=== PATIENT | female | born 1990 | race African-American/Black ===

== ENCOUNTER 2020-02-05 05:18 | Inpatient (IN) | payer OTHER ==
[~2020-02-05] VITALS: Ht 165.1 cm; Wt 69.9 kg
[2020-02-05] MEDS ORDERED: MAG HYDROX/AL HYDROX/SIMETH 30 ML UDC ONE (05:30)
[2020-02-05] MEDS ORDERED: MAG HYDROX/AL HYDROX/SIMETH 30 ML UDC PO ONE (05:30)
--- NOTE | 2020-02-05 05:30 | NUR ---
PT AAOX4. AMBULATORY WITH STEADY GAIT. BIBSELF C/O EPIGASTRIC PAIN FOR THE PAST NIGHT W VOMITING. VSS. PLACED IN BED 4, ON MONITOR AND PULSE OX. AWAITING MD FOR EVAL.
[2020-02-05] MEDS ORDERED: ONDANSETRON HCL/PF 4 MG/2 ML VIAL ONE ×2 (05:37→06:22)
--- NOTE | 2020-02-05 05:39 | NUR ---
PT VOMITING, MD ORDERED IV ZOFRAN.
--- NOTE | 2020-02-05 05:39 | NUR ---
RESIDENT ASSOCIATE AT BEDSIDE FOR LABS. AWAITING URINE SAMPLE.
[2020-02-05 05:49] LABS: HEMOGLOBIN 14.3 g/dL (11.5-14.8)
[2020-02-05 05:53] LABS: BASOPHILS # (AUTO) 0.1 /CMM (0.0-0.2); BASOPHILS % (AUTO) 0.4 % (0.0-2.0); HEMATOCRIT 44 % (33-45); LYMPHOCYTES # (AUTO) 1.1 /CMM (0.8-4.8); MEAN CORPUSCULAR HGB CONC 33 g/dl (31.0-36.0); MEAN CORPUSCULAR VOLUME 87 fL (82-100); MONOCYTES # (AUTO) 0.7 /CMM (0.1-1.30); MONOCYTES % (AUTO) 2.4 % (2.0-12.0); NEUTROPHILS # (AUTO) 25.3 /CMM (1.8-8.9); NEUTROPHILS % (AUTO) 93.2 % (43.0-81.0); PLATELET COUNT (AUTO) 176 /CMM (150-450); RED BLOOD CELL COUNT(AUTO) 5.01 MIL/uL (4.0-5.2); WHITE BLOOD COUNT (AUTO) 27.1 K/uL (4.3-11.0)
[2020-02-05 05:57] LABS: CALCIUM, SERUM 9.6 mg/dL (8.5-10.1); CREATININE 1.3 mg/dL (0.6-1.3); POTASSIUM 3.2 mmol/L (3.5-5.1)
[2020-02-05] MEDS ORDERED: ONDANSETRON HCL/PF - ER 4 MG/2 ML VIAL IV ONE (06:00)
[2020-02-05 06:06] LABS: ALBUMIN 4.8 g/dL (3.4-5.0); BILIRUBIN,DIRECT 0.1 mg/dL (0.0-0.2); BILIRUBIN,TOTAL 0.6 mg/dL (0.2-1.0); TOTAL PROTEIN, SERUM 8.4 g/dL (6.4-8.2)
[2020-02-05] MEDS ORDERED: KETOROLAC TROMETHAMINE 15 MG/ML VIAL ONE (06:17)
[2020-02-05] MEDS ORDERED: HYDROMORPHONE 1 MG/1 ML DISP.SYRIN ONE (06:17)
[2020-02-05] MEDS ORDERED: PIPERACILLIN /TAZOBACTAM 3.375 G VIAL IV ONE (06:17)
[2020-02-05] MEDS ORDERED: KETOROLAC TROMETHAMINE INJ 30 MG/ML VIAL IV ONE (06:30)
[2020-02-05] MEDS ORDERED: PIPERACILLIN /TAZOBACTAM 3.375 G in IV D5W 50 ML IV ONE (06:30)
[2020-02-05] MEDS ORDERED: ONDANSETRON HCL/PF 4 MG/2 ML VIAL IVP ONE (06:30)
[2020-02-05] MEDS ORDERED: IV NS 0.9% 1,000 ML BAG IV ONE (06:30)
[2020-02-05] MEDS ORDERED: HYDROMORPHONE INJ 2 MG/ML DISP.SYRIN IV ONE (06:30)
--- NOTE | 2020-02-05 06:31 | NUR ---
URINE COLLECTED AND SENT TO LAB
--- NOTE | 2020-02-05 06:48 | NUR ---
US AT BEDSIDE
--- NOTE | 2020-02-05 07:12 | NUR ---
REPORT GIVEN TO DIEUDONNE SIMMONS FOR JONES
--- NOTE | 2020-02-05 07:30 | NUR ---
wheeled patient to ct
--- NOTE | 2020-02-05 07:30 | NUR ---
PT IS WHEELED TO CT SCAN [place]IA [facility] [place]
[2020-02-05 07:32] LABS: LYMPHOCYTES % (MANUAL) 4 % (16-48); MONOCYTES % (MANUAL) 2 % (0-11.0); NEUTROPHILS % (MANUAL) 94 (42-76)
[2020-02-05] MEDS ORDERED: IV NS 0.9% 250 ML IV ONE (07:34)
[2020-02-05] MEDS ORDERED: IOHEXOL-300 100 ML VIAL IV ONE (07:34)
[2020-02-05] MEDS ORDERED: CT SWABBABLE VALVE TRANS SET 1 EA INFUS.SET MC ONE (07:34)
[2020-02-05] MEDS: IV PREMIX D5 NS + KCL 1,000 ML IV ONE (07:50)
[2020-02-05] MEDS ORDERED: AZITHROMYCIN 500 MG in IV D5W 250 ML IV ONE (08:30)
--- NOTE | 2020-02-05 08:33 | NUR ---
NAVEED craig from [employer] gave auth to admit patient here.
--- NOTE | 2020-02-05 08:35 | NUR ---
[facility] paged
--- NOTE | 2020-02-05 09:20 | NUR ---
CALLED [facility]SE [facility] FOR TELE BED
[2020-02-05 09:32] LABS: B-TYPE NATRIURETIC PEPTIDE 942 PG/ML (0-125)
--- NOTE | 2020-02-05 10:00 | NUR ---
CALLED FOR TELE BED.
--- NOTE | 2020-02-05 10:25 | NUR ---
GOT BED 103.
--- NOTE | 2020-02-05 10:30 | NUR ---
REPORT GIVEN TO DIEUDONNE CALLAHAN FOR JONES.
[2020-02-05 11:23] LABS: D-DIMER 0.51 mg/L(FEU (0.17-0.50)
--- NOTE | 2020-02-05 11:35 | NUR ---
wheeled patient via gurney accompanied by RN and emt in no distress. RN at bedside to assume care.
--- NOTE | 2020-02-05 11:45 | NUR ---
MS RN NOTES PATIENT DECIDED TO KEEP VALUABLES AT THE BED SIDE. BELONGING FORM SIGNED.
[2020-02-05 12:00] VITALS: BP 127/89
[2020-02-05] MEDS ORDERED: ACETAMINOPHEN 325 MG TABLET PO PRN (12:30)
[2020-02-05] MEDS ORDERED: MAGNESIUM HYDROXIDE 30 ML UDC PO PRN (12:30)
[2020-02-05] MEDS ORDERED: MAG HYDROX/AL HYDROX/SIMETH 30 ML UDC PO PRN (12:30)
[2020-02-05] MEDS ORDERED: Z GUARD REMEDY 2 OZ OINT TP PRN (12:30)
[2020-02-05] MEDS ORDERED: POTASSIUM CHLORIDE 20 MEQ TAB.PRT.SR PO ONE (12:30)
[2020-02-05] MEDS: HYDROCODONE/APAP 5/325MG 1 EACH TABLET PO PRN (12:43)
[2020-02-05] MEDS: IV NS 0.9% 1,000 ML IV PRN (12:45)
[2020-02-05 13:03] LABS: CREATINE KINASE, TOTAL 245 U/L (26-192)
[2020-02-05 13:07] LABS: FERRITIN 75 ng/mL (8-388)
[2020-02-05] MEDS: PIPERACILLIN /TAZOBACTAM 3.375 G in IV D5W 100 ML IV SCH ×2 (13:40→21:59)
--- NOTE | 2020-02-05 13:41 | NUR ---
ROCKY SLD INCLUSION TEACHER NOTES ZOSYN IS NOT AVAILABLE ON THE [facility]. [facility].
[2020-02-05 16:00] VITALS: BP 99/59
--- NOTE | 2020-02-05 18:50 | NUR ---
ROCKY RN CLOSING NOTES PT IS RESTING NOW. ALERT AND ORIENTED X4. PAIN DECREASE FROM 7 TO 4 . PT IS ON THE ROOM AIR. BED IS IN THE LOWEST POSITION . CALL LIGHT WITHIN REACH. SAFETY MEASURE ARE IMPLEMENTED. WILL ENDORSE TO NIGHT SHIFTS TO JONES
--- NOTE | 2020-02-05 19:20 | NUR ---
TRADING ANALYST OPENING NOTES RECIEVED PT ON BED AWAKE WATCHING TV A/O X4 OMANI SPEAKING NO SIGN AND SYMPTOMS OF RESPIRATORY DISTRESS, SPO2 98% VIA RA, ON TELE MONITOR WITH CURRENT READING SINUS RHYTHM 60'S-70'S, WITH LAC # 20 WITH ONGOING IVF OF NS @ 75ML/HR INFUSING WELL, ON DROPLET ISOLATION PRECAUTION R/O COVID, SAFETY MEASURE MAINTAINED BED ON LOWEST POSITION AND LOCKED SIDE RAILS UP X2 CALL LIGHT WITHIN REACH WILL CONT TO MONITOR
[2020-02-05 20:00] VITALS: BP 126/87
[2020-02-06] VITALS (7 sets, daily range): BP systolic 100–140; BP diastolic 55–92
[2020-02-06] MEDS: HYDROCODONE/APAP 5/325MG 1 EACH TABLET PO PRN ×2 (03:10→13:37)
[2020-02-06] MEDS: ONDANSETRON HCL/PF 4 MG/2 ML VIAL IVP PRN (03:11)
[2020-02-06] MEDS: PIPERACILLIN /TAZOBACTAM 3.375 G in IV D5W 100 ML IV SCH (04:30)
[2020-02-06] MEDS: IV NS 0.9% 1,000 ML IV PRN ×2 (06:01→21:44)
--- NOTE | 2020-02-06 06:49 | NUR ---
RN CLOSING NOTES PT SLEEPING ON BED NO SIGN AND SYMPTOMS OF RESPIRATORY DISTRESS SPO2 >92% NO SOB NOTED,STILL ON TELE MONITOR CURRENT READING SINUS RHYTHM 70'S. NO SIGNIFICANT CHANGES ON CONDITION NOTED, DROPLET ISOLATION MAINTAINED FOR R/O COVID 19, ALL NEEDS ATTENDED, SAFETY MEASURE MAINTAINED BED ON LOWEST POSITION AND LOCKED SIDE RAILS UP X2, CALL LIGHT WITHIN REACH WILL ENDORSE TO AM SHIFT NURSE
[2020-02-06 07:20] LABS: BASOPHILS % (AUTO) 0.2 % (0.0-2.0); EOSINOPHILS % (AUTO) 0.3 % (0.0-6.0); HEMATOCRIT 36 % (33-45); HEMOGLOBIN 11.7 g/dL (11.5-14.8); LYMPHOCYTES # (AUTO) 3.4 /CMM (0.8-4.8); LYMPHOCYTES % (AUTO) 24.4 % (20.0-44.0); MEAN CORPUSCULAR HGB CONC 33 g/dl (31.0-36.0); MEAN CORPUSCULAR VOLUME 87 fL (82-100); MONOCYTES # (AUTO) 0.5 /CMM (0.1-1.30); MONOCYTES % (AUTO) 3.3 % (2.0-12.0); NEUTROPHILS % (AUTO) 71.8 % (43.0-81.0); PLATELET COUNT (AUTO) 114 /CMM (150-450); RED BLOOD CELL COUNT(AUTO) 4.11 MIL/uL (4.0-5.2); WHITE BLOOD COUNT (AUTO) 13.9 K/uL (4.3-11.0)
--- NOTE | 2020-02-06 07:30 | NUR ---
RN OPENING NOTES RECEIVED REPORT FROM VENDING MACHINE OPERATOR NURSE, PATIENT RESTING CALMLY AT BED, ON ROOM AIR, SATURATION IS 100%,A&O X 4, PATIENT IS ON TELEMONITOR, SINUS RHYTHM 60S, SKIN IS INTACT, IV IS ON LEFT AC G20, RUNNING NS @75 CC/HR, BED IN LOWEST POSITION, CALL LIGHT WITHIN A REACH, SAFETY MEASURES ARE IMPLEMENTED, CONTINUE TO MONITOR
[2020-02-06 07:58] LABS: CALCIUM, SERUM 7.9 mg/dL (8.5-10.1); CREATININE 1.2 mg/dL (0.6-1.3); POTASSIUM 3.4 mmol/L (3.5-5.1)
[2020-02-06] MEDS ORDERED: DOXYCYCLINE 100 MG in IV NS 0.9% 100 ML IV SCH (09:00)
[2020-02-06] MEDS: CEFTRIAXONE 1 G in IV D5W 50 ML IV SCH (09:14)
[2020-02-06] MEDS ORDERED: DOXYCYCLINE HYCLATE (100 MG) 100 MG TABLET PO SCH (09:55)
[2020-02-06] MEDS: DOXYCYCLINE HYCLATE (100 MG) 100 MG TABLET PO SCH ×2 (10:48→20:51)
[2020-02-06] MEDS ORDERED: POTASSIUM CHLORIDE 20 MEQ TAB.PRT.SR PO ONE (11:00)
--- NOTE | 2020-02-06 11:38 | NUR ---
PROGRESS NOTE PERFORMED ORAL SWAB FOR COVID LAB TEST, TEST DELIVERED TO THE LAB
[2020-02-06] MEDS ORDERED: MORPHINE SULFATE INJ 2 MG/ML DISP.SYRIN IV PRN (14:00)
--- NOTE | 2020-02-06 15:00 | NUR ---
PROGRESS NOTE PT THRASHING IN THE ROOM, COMPLEIND OF SEVERE PAIN INTO ABDOMINAL AREA, CONTACT MD CAVANAUGH OBTAINED ORDERS FOR PRN PAIN MANAGEMENT
[2020-02-06] MEDS ORDERED: HYDROMORPHONE 1 MG/1 ML DISP.SYRIN IV ONE (15:30)
[2020-02-06] MEDS ORDERED: IV NS 0.9% 1,000 ML IV PRN (16:30)
[2020-02-06] MEDS ORDERED: IV NS 0.9% 500 ML IV ONE (16:30)
--- NOTE | 2020-02-06 18:42 | NUR ---
RN CLOSING NOTES PATIENT SLEEPING IN BED,, ON ROOM AIR, SATURATION IS 100% NO S/SX OF RESPIRATORY DISTRESS, ,A&O X 4, SKIN IS INTACT, IV IS ON LEFT AC G20, NO REDDENS NOTED, BED IN LOWEST POSITION, CALL LIGHT WITHIN A REACH, SAFETY MEASURES ARE IMPLEMENTED, ALL DUE MED ARE GIVEN, WILL ENDORSE TO WELDER MANUFACTURE NURSE
[2020-02-06] MEDS: HYDROMORPHONE 1 MG/1 ML DISP.SYRIN IV PRN (21:09)
[2020-02-07] MEDS: HYDROMORPHONE 1 MG/1 ML DISP.SYRIN IV PRN ×3 (01:52→21:02)
--- NOTE | 2020-02-07 04:06 | NUR ---
RN notes Patient in bed with no respiratory distress, breathing even and unlabored. On room air tolerating well. Patient is complaining of abdominal pain. Dilaudid 1mg administered with very little relief. Waiting for serology result for covid 19. No episode of vomiting and nausea. Kept clean and dry. Will endorse to next shift for continuity of care.
--- NOTE | 2020-02-07 07:00 | NUR ---
RN NOTES RECEIVED PT ON BED, A/OX4, ON RA, NO SOB NOTED, NS AT 75CC/HR RUNNING VIA R FA IV SITE G 22, SITE CLEAN, DRY AND INTACT, SR UP x3, CALL LIGHT WITHIN EASY REACH BED LOCKED AND IN LOWEST POSITION, CONTINUE TO MONITOR .
[2020-02-07 07:18] LABS: B-TYPE NATRIURETIC PEPTIDE 884 PG/ML (0-125)
[2020-02-07 07:22] LABS: FERRITIN 104 ng/mL (8-388)
[2020-02-07] MEDS: IV NS 0.9% 1,000 ML IV PRN (07:40)
[2020-02-07 08:00] VITALS: BP 101/65
[2020-02-07] MEDS: DOXYCYCLINE HYCLATE (100 MG) 100 MG TABLET PO SCH ×2 (08:34→20:47)
[2020-02-07 08:37] LABS: CALCIUM, SERUM 8.7 mg/dL (8.5-10.1); CREATININE 1.2 mg/dL (0.6-1.3); POTASSIUM 3.7 mmol/L (3.5-5.1)
[2020-02-07 08:43] LABS: BASOPHILS # (AUTO) 0.1 /CMM (0.0-0.2); BASOPHILS % (AUTO) 0.2 % (0.0-2.0); EOSINOPHILS % (AUTO) 0.1 % (0.0-6.0); HEMATOCRIT 39 % (33-45); HEMOGLOBIN 12.5 g/dL (11.5-14.8); LYMPHOCYTES # (AUTO) 2.8 /CMM (0.8-4.8); LYMPHOCYTES % (AUTO) 12.5 % (20.0-44.0); MEAN CORPUSCULAR HGB CONC 33 g/dl (31.0-36.0); MEAN CORPUSCULAR VOLUME 87 fL (82-100); MONOCYTES # (AUTO) 1.1 /CMM (0.1-1.30); MONOCYTES % (AUTO) 4.9 % (2.0-12.0); NEUTROPHILS # (AUTO) 18.1 /CMM (1.8-8.9); NEUTROPHILS % (AUTO) 82.3 % (43.0-81.0); PLATELET COUNT (AUTO) 161 /CMM (150-450); RED BLOOD CELL COUNT(AUTO) 4.43 MIL/uL (4.0-5.2)
[2020-02-07] MEDS: ONDANSETRON HCL/PF 4 MG/2 ML VIAL IVP PRN ×2 (09:23→15:47)
[2020-02-07] MEDS ORDERED: HYDROMORPHONE 1 MG/1 ML DISP.SYRIN IV ONE (10:00)
[2020-02-07] MEDS: CEFTRIAXONE 1 G in IV D5W 50 ML IV SCH (10:08)
--- NOTE | 2020-02-07 11:00 | NUR ---
RN NOTES DR CAVANAUGH NOTIFED REGARDING LA =2.2,
[2020-02-07 11:03] LABS: BILIRUBIN,DIRECT 0.2 mg/dL (0.0-0.2); BILIRUBIN,TOTAL 0.6 mg/dL (0.2-1.0)
--- NOTE | 2020-02-07 15:45 | NUR ---
RN NOTES PT REQUESTING C/O OF ABDOMINAL PAIN , NARCO PO GIVEN PER MD ORDER , CONTINUE TO MONITOR .
[2020-02-07] MEDS: HYDROCODONE/APAP 5/325MG 1 EACH TABLET PO PRN (15:47)
[2020-02-07 16:00] VITALS: BP 130/68
[2020-02-07 16:08] VITALS: BP 150/100
--- NOTE | 2020-02-07 16:49 | NUR ---
RN notes Administered 0.5mg of dilaudid at about 0445 for pain. Patient was complaining of severe epigastric abdominal pain. Had administered x 3for the 12 hour shift. Slightly effective. Waste for the third dose has not been recorded. Patient was screaming in pain and had to be administered quickly. The remainder dose of 0.5mg was mistakenly thrown away without a witness and had not been recorded as waste.
--- NOTE | 2020-02-07 17:10 | NUR ---
RN NOTES PT TRANSFERRED TO ROOM 209 NON COVID STATUS, PER DR CAVANAUGH ORDER, PT STABLE, REPORT GIVEN TO VICKIE BRO FOR CONTINUITY OF CARE.
--- NOTE | 2020-02-07 17:30 | NUR ---
MS RN NOTES RECEIVED PATIENT FROM ROCKY. BEDSIDE REPORT RECEIVED FROM EMELYN BRO. PATIENT SLEEPING. NO SOB OR ACUTE DISTRESS NOTED. PATIENT ORIENTED TO ROOM. CALL LIGHT WITHIN REACH. WILL CONTINUE TO MONITOR.
--- NOTE | 2020-02-07 18:56 | NUR ---
MS RN NOTES PATIENT IN BED RESTING NO SOB OR ACUTE DISTRESS NOTED. ALL DUE MEDICATIONS ADMINISTERED. ALL NEEDS MET. NO ACUTE CHANGES NOTED DURING SHIFT. WILL ENDORSE CARE TO PM SHIFT.
--- NOTE | 2020-02-07 19:40 | NUR ---
MS RN OPENING NOTES RECEIVED PATIENT FROM MORNING SHIFT, ALERT AND ORIENTED X 3. VERBALLY RESPONSIVE AND ABLE TO FOLLOW DIRECTIONS. BREATHING REGULAR AND UNLABORED ON ROOM AIR. RIGHT FOREARM G22 IV LINE INTACT AND PATENT, INFUSING WELL WITH NO BLEEDING OR S/S OF INFILTRATION NOTED. DENIES SUICIDAL IDEATION OR PAIN/DISCOMFORT AT THIS TIME. BED LOW AND LOCKED ON SEMI FOWLERS POSITION. CALL LIGHT IN REACH. WILL CONTINUE TO MONITOR.
[2020-02-07 20:00] VITALS: BP 112/75
--- NOTE | 2020-02-07 21:10 | NUR ---
MS RN NOTES COMPLAINED OF 8/10 ABDOMINAL PAIN, DILAUDID 1MG GIVEN VIA IV PUSH. NON-PHARMACOLOGICAL INTERVENTIONS PROVIDED. VITAL SIGNS WNL. WILL CONTINUE TO MONITOR.
[2020-02-08] MEDS: HYDROMORPHONE 1 MG/1 ML DISP.SYRIN IV PRN ×4 (02:43→18:57)
[2020-02-08] MEDS: IV NS 0.9% 1,000 ML IV PRN (05:46)
[2020-02-08 06:30] LABS: BASOPHILS % (AUTO) 0.3 % (0.0-2.0); EOSINOPHILS % (AUTO) 0.6 % (0.0-6.0); HEMATOCRIT 35 % (33-45); HEMOGLOBIN 11.3 g/dL (11.5-14.8); LYMPHOCYTES # (AUTO) 1.6 /CMM (0.8-4.8); LYMPHOCYTES % (AUTO) 18.3 % (20.0-44.0); MEAN CORPUSCULAR HGB CONC 33 g/dl (31.0-36.0); MEAN CORPUSCULAR VOLUME 87 fL (82-100); MONOCYTES # (AUTO) 0.5 /CMM (0.1-1.30); MONOCYTES % (AUTO) 5.3 % (2.0-12.0); NEUTROPHILS # (AUTO) 6.6 /CMM (1.8-8.9); NEUTROPHILS % (AUTO) 75.5 % (43.0-81.0); PLATELET COUNT (AUTO) 115 /CMM (150-450); RED BLOOD CELL COUNT(AUTO) 3.97 MIL/uL (4.0-5.2); WHITE BLOOD COUNT (AUTO) 8.8 K/uL (4.3-11.0)
--- NOTE | 2020-02-08 06:50 | NUR ---
MS RN CLOSING NOTES PATIENT IN BED, ALERT AND ORIENTED X 3. AFEBRILE WITH NO S/S OF DISTRESS OBSERVED. RIGHT FOREARM G22 IV LINE PATENT AND INFUSING WELL. DENIES ANY PAIN/DISCOMFORT AT THIS TIME. BED LOW AND LOCKED ON SEMI FOWLERS POSITION. CALL LIGHT IN REACH. WILL ENDORSE TO MORNING SHIFT FOR JONES.
[2020-02-08 07:00] LABS: CALCIUM, SERUM 8.4 mg/dL (8.5-10.1); CREATININE 1.1 mg/dL (0.6-1.3); POTASSIUM 3.5 mmol/L (3.5-5.1)
--- NOTE | 2020-02-08 08:00 | NUR ---
MS RN NOTES PATIENT IN BED RESTING NO SOB OR ACUTE DISTRESS NOTED. PATIENT ALERT, ORIENTED X 3. BED IN LOW LOCKED POSITION. SAFETY MEASURES IN PLACE. CALL LIGHT WITHIN REACH. WILL CONTINUE TO MONITOR.
[2020-02-08] MEDS: ONDANSETRON HCL/PF 4 MG/2 ML VIAL IVP PRN (08:28)
[2020-02-08] MEDS: DOXYCYCLINE HYCLATE (100 MG) 100 MG TABLET PO SCH ×2 (08:29→20:26)
[2020-02-08] MEDS: CEFTRIAXONE 1 G in IV D5W 50 ML IV SCH (09:37)
[2020-02-08 15:28] VITALS: BP 141/71
[2020-02-08 18:42] LABS: APPEARANCE,URINE CLEAR (CLEAR); BILIRUBIN,URINE SMALL (NEGATIVE); BLOOD, URINE NEGATIVE Ery/uL (NEGATIVE); COLOR,URINE YELLOW (YELLOW); KETONES,URINE >=80 (NEGATIVE); LEUKOCYTE ESTERASE ,URINE NEGATIVE (NEGATIVE); NITRITE, URINE NEGATIVE (NEGATIVE); PROTEIN,URINE NEGATIVE (NEGATIVE); UGLUCOSE NEGATIVE (NEGATIVE); UROBILINOGEN,URINE 0.2 EU/dL (0.2)
--- NOTE | 2020-02-08 18:47 | NUR ---
MS RN NOTES PATIENT IN BED RESTING NO SOB OR ACUTE DISTRESS NOTED. NO ACUTE CHANGES NOTED. ALL DUE MEDICATIONS ADMINISTERED. ALL NEEDS MET. WILL ENDORSE CARE TO PM SHIFT.
--- NOTE | 2020-02-08 19:20 | NUR ---
RN OPENING NOTES Received patient asleep on bed. On RA, no SOB/respiratory distress noted at this time. Patient denies any pain at this time. Kept on bed clean, dry and comfortable. On fall and aspiration precautions. Will continue to monitor accordingly.
[2020-02-08 20:00] VITALS: BP 120/60
[2020-02-08 23:10] VITALS: BP 110/63
[2020-02-09] MEDS: HYDROMORPHONE 1 MG/1 ML DISP.SYRIN IV PRN ×4 (00:06→23:43)
[2020-02-09] MEDS: IV NS 0.9% 1,000 ML IV PRN ×2 (01:39→19:57)
--- NOTE | 2020-02-09 06:50 | NUR ---
RN CLOSING NOTES Patient asleep, easily awaken. No new complaints made. All nursing needs attended. Due meds given as ordered. Kept on bed clean, dry and comfortable. On fall and aspiration precautions. Endorsed.
--- NOTE | 2020-02-09 08:00 | NUR ---
MS RN OPENING NOTES Received Patient awake, walking and restless in room. A/O x 3. VS stable with no acute distress. Breathing even and unlabored on room air with no respiratory distress. Patient stated 9/10 abdominal pain. Will intervene as ordered. 22g PIV on RFA clean, intact, patent and flushing well with NS infusing at 75ml/hr. Safety precautions in place. Bed locked and set to lowest position with side rails x 2 up. All needs rendered at this time. Call light within reach. Will continue to monitor.
[2020-02-09] MEDS: DOXYCYCLINE HYCLATE (100 MG) 100 MG TABLET PO SCH ×2 (08:02→20:30)
[2020-02-09] MEDS: ONDANSETRON HCL/PF 4 MG/2 ML VIAL IVP PRN (08:05)
[2020-02-09] MEDS: CEFTRIAXONE 1 G in IV D5W 50 ML IV SCH (09:01)
--- NOTE | 2020-02-09 10:00 | NUR ---
MS RN NOTES Per Zahra GALLO, order Protonix 40mg IVP QD with one time dose now. And change Dilaudid 1mg IVP PRN q4h to q6h frequency. Order read back, noted and carried out. Patient in stable condition. Will continue to monitor.
[2020-02-09] MEDS: PANTOPRAZOLE 40 MG VIAL IV SCH (10:41)
--- NOTE | 2020-02-09 19:20 | NUR ---
MS RN CLOSING NOTES Patient resting at this time. A/O x 3. VS stable with no acute distress. Breathing even and unlabored on room air with no respiratory distress. Patient stated tolerable abdominal pain 4/10. 22g PIV on RFA clean, intact, patent and flushing well with NS infusing at 75ml/hr. Safety precautions in place. Bed locked and set to lowest position with side rails x 2 up. All needs rendered at this time. Call light within reach. Will endorse plan of care to oncoming shift.
--- NOTE | 2020-02-09 19:21 | NUR ---
RN OPENING NOTES Received patient awake, sitting on bed, on the phone. Denies any discomfort at this time. With IVF infusing well, NS @ 75ml/hr as ordered. Discussed to patient the plan of care, verbalized understanding. Will continue to monitor accordingly.
[2020-02-09 20:00] VITALS: BP 115/77
--- NOTE | 2020-02-09 20:51 | NUR ---
RN NOTES Patient able to take shower independently. IV site wrapped, instructed patient to avoid water on the site, verbalized understanding.
[2020-02-09 21:04] VITALS: BP 115/77
--- NOTE | 2020-02-09 23:54 | NUR ---
RN NOTES Patient complaint of severe abdominal pain. Administered meds as ordered. Per RN report, pt may have EGD in AM. Confirmed with patient in agreement to do the procedure tomorrow. Instructed to kept on NPO, pt verbalized understanding. Notified tar and ammonia pump operator MD Dr. Bowden. Will continue to monitor accordingly.
[2020-02-10] MEDS: HYDROCODONE/APAP 5/325MG 1 EACH TABLET PO PRN ×2 (03:49→13:11)
[2020-02-10] MEDS: HYDROMORPHONE 1 MG/1 ML DISP.SYRIN IV PRN ×4 (06:14→22:58)
--- NOTE | 2020-02-10 06:28 | NUR ---
RN CLOSING NOTES Patient asleep, easily awaken. On RA, no respiratory distress noted. With complaints of abdominal pain, managed with PRN pain meds as ordered. Pt in agreement of EGD discussed with HCP yesterday. Kept on NPO for possible EGD today. All nursing needs attended. Call light within easy reach. Endorsed.
--- NOTE | 2020-02-10 07:36 | NUR ---
MS/RN OPENING NOTES RECEIVED PATIENT ON BED. PATIENT IS ALERT AND ORIENTED X 4. NO COMPLAINED OF PAIN AT THIS TIME. NO RESPIRATORY DISTRESS NOTED. IV ACCESS AT RIGHT FOREARM #22 G WITH IV FLUID OF 75ML/HR ON AND INFUSING WELL. BED IN LOW POSITION AND LOCKED X2. CALL LIGHT WITHIN REACH. WILL CONTINUE TO MONITOR.
[2020-02-10 07:55] VITALS: BP 117/62
[2020-02-10] MEDS: PANTOPRAZOLE 40 MG VIAL IV SCH (07:55)
[2020-02-10] MEDS: DOXYCYCLINE HYCLATE (100 MG) 100 MG TABLET PO SCH ×2 (09:12→21:01)
--- NOTE | 2020-02-10 09:58 | NUR ---
MS/RN NOTES DR. BUCIO ORDER REGULAR DIET NOTED AND CARRIED OUT.
[2020-02-10] MEDS: ONDANSETRON HCL/PF 4 MG/2 ML VIAL IVP PRN (10:23)
[2020-02-10] MEDS: CEFTRIAXONE 1 G in IV D5W 50 ML IV SCH (10:27)
--- NOTE | 2020-02-10 10:39 | NUR ---
MS/RN NOTES PATIENT COMPLAINED OF ABDOMINAL PAIN RATED 8/10. DILAUDID 1 MG IV WAS GIVEN. ALSO COMPLAINED OF NAUSEA AND VOMITING WITH EMESIS 1 X ONDANSETRON 4MG/2ML IV WAS GIVEN. WILL CONTINUE TO MONITOR.
--- NOTE | 2020-02-10 13:30 | NUR ---
MS/RN NOTES PATIENT IS HAVING NAUSEA,VOMITING AND ABDOMINAL PAIN DR BUCIO IS AWARE AND ORDER GI CONSULT AND HOLD DISCHARGED.
[2020-02-10 16:00] VITALS: BP 145/91
--- NOTE | 2020-02-10 16:13 | NUR ---
MS/RN NOTES PATIENT TALK TO DR. POE ABOUT HER CONDITION, WILL CHECKED PATIENT CHART PER DR. POE. NO NEW ORDER AT THIS TIME.
[2020-02-10] MEDS: IV NS 0.9% 1,000 ML IV PRN (16:55)
--- NOTE | 2020-02-10 19:51 | NUR ---
RN NOTES/SEEN BY JESSICA/MATT: JESSICA GUTIERREZ CAME TO SEE THE PT, PER MD SHE THEN DC THE CEFTRIAXONE, AND WILL HAVE ONE MORE DOSE OF DOXYCYCLINE TONIGHT THEN DC AFTER THAT. EGD IN AM, WHICH ACCDG TO GI ATB POSSIBLY CAUSE THE VOMITING.
[2020-02-10 20:00] VITALS: BP 128/82
[2020-02-10 20:51] VITALS: BP 128/82
--- NOTE | 2020-02-10 23:08 | NUR ---
PRN DILAUDID: PT C/O 04/10 ABDL PAIN, REQUESTING FOR DILAUDID, PT REFUSING NORCO, PRN DILAUDID 1MG IVP ADMINISTERED TO PT AT THIS TIME. WILL CONTINUE TO MONITOR AND REASSESS PT.
--- NOTE | 2020-02-11 01:18 | NUR ---
RN NOTES: NOTIFIED [facility] MD HOSPITALIST ABOUT NEW OR PROTOCOL. TELEPHONE ORDER RECEIVED STAT ORDER FOR COVID SWAB PT FOR EGD IN AM. NEW O.R PROTOCOL THAT EVERY PT NEEDS TO BE SWAB BEFORE SURGERY/PROCEDURE IN OR.
--- NOTE | 2020-02-11 01:38 | NUR ---
RN NOTES: NOTED PT HAS COVID TEST DONE ON 02/06/2020 , RESULT IS NEGATIVE.
[2020-02-11] MEDS: IV NS 0.9% 1,000 ML IV PRN (04:56)
[2020-02-11] MEDS: HYDROMORPHONE 1 MG/1 ML DISP.SYRIN IV PRN (04:59)
--- NOTE | 2020-02-11 05:08 | NUR ---
prn dilaudid: pt c/o 04/10 epigastric pain, requesting for dilaudid iv. prn dilaudid 1mg ivp administer to pt at this time. will continue to monitor and reassess.
--- NOTE | 2020-02-11 06:56 | NUR ---
end of shift report: received report form surjit fraser at 1930 last night. pt a/o x4, dc held due to pt's c/o abdl pain with vomiting, s/b gi dr sewell plan for egd. pt npo x meds, prn dilaudid administered for pt's c/o epigastric pain. offered noroc last nght but pt refused, prefers dilaudid. iv access remains patent and flushing welll, infusing with ns at 75ml/hr. no s/s of iv infiltration noted. egd sched for 1030am, consent and checklist completed, attached to chart. vs remains stable, needs attended. safety precautions for fall remains engaged, call light in reach, will endorse to day rn for continuity of care.
[2020-02-11 07:17] LABS: BASOPHILS % (AUTO) 0.3 % (0.0-2.0); EOSINOPHILS % (AUTO) 2.3 % (0.0-6.0); HEMATOCRIT 34 % (33-45); HEMOGLOBIN 11.1 g/dL (11.5-14.8); MEAN CORPUSCULAR HGB CONC 32 g/dl (31.0-36.0); MEAN CORPUSCULAR VOLUME 87 fL (82-100); MONOCYTES # (AUTO) 0.4 /CMM (0.1-1.30); MONOCYTES % (AUTO) 8.3 % (2.0-12.0); NEUTROPHILS # (AUTO) 2.2 /CMM (1.8-8.9); NEUTROPHILS % (AUTO) 47.1 % (43.0-81.0); PLATELET COUNT (AUTO) 142 /CMM (150-450); RED BLOOD CELL COUNT(AUTO) 3.93 MIL/uL (4.0-5.2); WHITE BLOOD COUNT (AUTO) 4.6 K/uL (4.3-11.0)
[2020-02-11 07:31] LABS: CALCIUM, SERUM 8.2 mg/dL (8.5-10.1); CREATININE 0.9 mg/dL (0.6-1.3); POTASSIUM 3.3 mmol/L (3.5-5.1)
--- NOTE | 2020-02-11 07:44 | NUR ---
RN NOTES Received Pt in bed resting comfortably in moderate high back rest. A/O x 4, On RA, No signs of distress noted at this time. IV access remains patent and flushing well, infusing with ns at 75ml/hr. no s/s of iv infiltration noted. Schedule for EGD 10:30am. Safety measures in place, bed in lowest locked position with side rails up x2. call light within reach. will continue to monitor.
[2020-02-11 08:00] VITALS: BP 118/76
[2020-02-11] MEDS: PANTOPRAZOLE 40 MG VIAL IV SCH (08:26)
[2020-02-11] MEDS: DOXYCYCLINE HYCLATE (100 MG) 100 MG TABLET PO SCH (08:26)
[2020-02-11] MEDS ORDERED: MIDAZOLAM HCL 2 MG/2ML VIAL ONE (09:57)
[2020-02-11] MEDS ORDERED: FAMOTIDINE/PF INJ 20 MG/2 ML VIAL IV ONE (09:57)
[2020-02-11] MEDS: ONDANSETRON HCL/PF 4 MG/2 ML VIAL IVP PRN (10:02)
[2020-02-11] MEDS ORDERED: POTASSIUM CHLORIDE 20 MEQ POWDER PACKET PO SCH (11:30)
--- NOTE | 2020-02-11 11:30 | NUR ---
RN NOTES CAME BACK FROM O.R, V/S CHECKED AND WNL. A/O X4. ABLE TO MAKE NEEDS KNOWN. NO COMPLAIN OF PAIN AT THIS TIME. PER DR. POE RESUME PRE OP ORDERS AND ADVANCE DIET TOLERATED. SAFETY MEASURES IN PLACE, BED PLACE IN LOWEST LOCKED POSITION WITH SIDE RAILS UP X2. CALL LIGHT WITHIN EASY REACH. WILL CONTINUE TO MONITOR.
--- NOTE | 2020-02-11 16:00 | NUR ---
RN DISCHARGED NOTES PATIENT DISCHARGED IN STABLE CONDITION. A/O X4. ABLE TO MAKE NEEDS KNOWN. V/S TAKEN, STABLE AND RECORDED. PATIENT'S IV REMOVED AND APPLIED PRESSURE DRESSINGS. SKIN IS INTACT. NAME ARM BAND REMOVED. ALL BELONGINGS CHECKED AND SIGNED. PRESCRIPTION FOR MEDICATION GIVEN TO PATIENT. HEALTH TEACHINGS/DISCHARGED INSTRUCTIONS GIVEN AND VERBALIZED UNDERSTANDING. PATIENT LEFT UNIT AMBULATORY WITH NO SIGNS OF DISTRESS NOTED. PATIENT ASSISTED TO LOBBY. CHARGED NURSE AWARE OF DISCHARGED.
== END 2020-02-11 16:00 | disposition home or self-care (01) | DRG 720 ==
LOC: ER 05:20 → MEDSG1 10:57 → TELE1 19:46 → MEDSG1 02-06 16:25 → MEDSG2 02-07 16:47
PROVIDERS: ADMIT Internal Medicine; ATTEND Internal Medicine
PROC: 0DB68ZX Excision of Stomach, Via Natural or Artificial Opening Endoscopic, Diagnostic (ICD-10-PCS; principal; 2020-02-11)
DX: A41.9 Sepsis, unspecified organism (principal); J18.9 Pneumonia, unspecified organism; E87.2 Acidosis; D69.6 Thrombocytopenia, unspecified; E87.6 Hypokalemia; K57.90 Diverticulosis of intestine, part unspecified, without perforation or abscess without bleeding; K29.00 Acute gastritis without bleeding; Z87.11 Personal history of peptic ulcer disease; T36.4X5A Adverse effect of tetracyclines, initial encounter; T40.605A Adverse effect of unspecified narcotics, initial encounter; Y92.009 Unspecified place in unspecified non-institutional (private) residence as the place of occurrence of the external cause; N27.0 Small kidney, unilateral
CPT/HCPCS: 36415; 71045-TC; 76705-TC; 80048-TC; 80074; 80076-TC; 81000-TC; 82247-TC; 82248-TC; 82550-TC; 82553; 82728-TC; 83605-TC; 83615-TC; 83690-TC; 83880; 84484-TC; 84702-TC; 84703-TC; 85025-TC; 85378-TC; 85385-TC; 85610-TC; 85730-TC; 86140-TC; 86803; 86850-TC; 87040-TC; 87081-TC; 87449; 87806; 88305-TC; 88312-TC; 88342; C9113; G0378; J0456; J0696; J1170; J1885; J2250; J2270; J2405; J2543; J2704; J3490; J7030; J7050; J7060; Q9967; U0003-CS

== ENCOUNTER 2020-04-01 00:17 | Inpatient (IN) | payer OTHER ==
[~2020-04-01] VITALS: Ht 162.6 cm; Wt 62.6 kg
--- NOTE | 2020-04-01 01:00 | NUR ---
PT CAME TO THE ED C/O UPPER ABD PAIN X 2 DAYS +N/V/D. LAST BM X 2 HOURS AGO PRE K TEACHER. +LOOSE STOOL. PT AAOX4, VSS, RESPIRATIONS EVEN AND UNLABORED ON RA W/ NAD NOTED. PT CONNECTED TO THE MONITOR AND POX
[2020-04-01] MEDS ORDERED: ONDANSETRON HCL/PF 4 MG/2 ML VIAL ONE ×2 (01:15→08:00)
[2020-04-01] MEDS ORDERED: MORPHINE SULFATE INJ 4 MG/ML DISP.SYRIN ONE (01:15)
[2020-04-01] MEDS ORDERED: MORPHINE SULFATE INJ 2 MG/ML DISP.SYRIN IV ONE (01:30)
[2020-04-01] MEDS ORDERED: ONDANSETRON HCL/PF 4 MG/2 ML VIAL IVP ONE (01:30)
[2020-04-01] MEDS ORDERED: IV NS 0.9% 1,000 ML BAG IV ONE (01:30)
[2020-04-01 01:36] LABS: HEMATOCRIT 35 % (33-45); HEMOGLOBIN 11.4 g/dL (11.5-14.8); LYMPHOCYTES # (AUTO) 0.8 /CMM (0.8-4.8); MEAN CORPUSCULAR HGB CONC 33 g/dl (31.0-36.0); MEAN CORPUSCULAR VOLUME 87 fL (82-100); MONOCYTES # (AUTO) 0.3 /CMM (0.1-1.30); MONOCYTES % (AUTO) 2.5 % (2.0-12.0); NEUTROPHILS # (AUTO) 12.7 /CMM (1.8-8.9); NEUTROPHILS % (AUTO) 91.5 % (43.0-81.0); PLATELET COUNT (AUTO) 165 /CMM (150-450); WHITE BLOOD COUNT (AUTO) 13.9 K/uL (4.3-11.0)
[2020-04-01 02:10] LABS: ALBUMIN 4.4 g/dL (3.4-5.0); BILIRUBIN,DIRECT 0.1 mg/dL (0.0-0.2); BILIRUBIN,TOTAL 0.5 mg/dL (0.2-1.0); CALCIUM, SERUM 9.5 mg/dL (8.5-10.1); CREATININE 0.9 mg/dL (0.6-1.3); POTASSIUM 3.6 mmol/L (3.5-5.1); TOTAL PROTEIN, SERUM 7.6 g/dL (6.4-8.2)
--- NOTE | 2020-04-01 02:20 | NUR ---
ULTRASOUND AT BEDSIDE
--- NOTE | 2020-04-01 04:29 | NUR ---
ULTRASOUND AT BEDSIDE
[2020-04-01] MEDS ORDERED: ONDANSETRON 4 MG TAB.RAPDIS ONE (06:04)
--- NOTE | 2020-04-01 06:29 | NUR ---
Elizabeth steven in [facility] - 04/01/20 at 0644 by TROY PT TAKEN TO CT
[2020-04-01] MEDS ORDERED: METOCLOPRAMIDE HCL 10 MG/2 ML VIAL IV PRN (06:30)
[2020-04-01] MEDS ORDERED: METOCLOPRAMIDE HCL 10 MG/2 ML VIAL IV ONE (06:30)
[2020-04-01] MEDS ORDERED: IV NS 0.9% 1,000 ML IV PRN (06:30)
[2020-04-01] MEDS ORDERED: ONDANSETRON 4 MG TAB.RAPDIS SL ONE (06:30)
[2020-04-01] MEDS ORDERED: METOCLOPRAMIDE HCL 10 MG/2 ML VIAL ONE (06:34)
--- NOTE | 2020-04-01 07:08 | NUR ---
COVID SWAB SENT TO LAB
[2020-04-01] MEDS ORDERED: ONDANSETRON HCL/PF 4 MG/2 ML VIAL IV ONE (08:30)
--- NOTE | 2020-04-01 08:32 | NUR ---
GOT BED 204-1
--- NOTE | 2020-04-01 08:38 | NUR ---
report given to valdez fraser . awaiting transfer to floor.
[2020-04-01 09:00] VITALS: BP 139/82
--- NOTE | 2020-04-01 09:14 | NUR ---
PT ADMITTED TO M/S FLOOR. UNABLE TO DEPART FROM [facility]
[2020-04-01] MEDS: IV NS 0.9% 1,000 ML IV PRN ×2 (09:29→18:32)
--- NOTE | 2020-04-01 09:30 | NUR ---
MS COUNTER SALES REPRESENTATIVE NOTES RECEIVED PT FROM ER DEPT VIA [facility], PT AWAKE, A/OX4, ABLE TO AMBULATE STEADY GOING INSIDE THE ROOM. PT TOLERATING RA, WITH NO ACUTE RESPIRATORY DISTRESS. PT STATED HAS STILL ABDOMINAL PAIN AND APPEARS IRRITATED. PT DENIES ANY MEDICAL HISTORY AND USE OF RECREATIONAL DRUGS. DENIES SMOKING AND ALCOHOL WELL STATING "NEVER". PT SATED SHE HAS AN OB/MD THAT SHE SAW 3MONTHS AGO, BUT DOESN'T KNOW THE DETAILS. ADMITTING MD/SK MADE AWARE, ORDER PLACED FOR FOR CONSULT; PT MADE AWARE. PIV TO RIGHT HAND G22, STARTED ON IVF NS AT 90ML/HR, INTACT AND FLUID INFUSING WELL. PT ORIENTED TO THE ROM, STAFFS, ETC. PT KEPT COMFORTABLE IN BED, PT PREFERS TO DLEEP AT THIS TIME. VS TAKEN ND RECORDED. CALL LIGHT KEPT WITHIN REACH. WILL CONTINUE PLAN OF CARE.
--- NOTE | 2020-04-01 09:45 | NUR ---
MS RN NOTES SKIN ASSESSED, SKIN INTACT.
[2020-04-01] MEDS: METOCLOPRAMIDE HCL 10 MG/2 ML VIAL IV PRN ×2 (12:28→21:49)
--- NOTE | 2020-04-01 13:04 | NUR ---
MS RN NOTES PT REQUESTED FOR PAIN MEDICINE AND COUGH MEDICINE. MD/SK MADE AWARE, ORDERS PLACED AND CARRIED OUT. CALLED AND SPOKE TO THE PHARMACY TO DELIVER COUGH MEDICINE WELL. WILL CONTINUE PLAN OF CARE.
[2020-04-01] MEDS: ACETAMINOPHEN 325 MG TABLET PO PRN ×2 (13:46→22:00)
[2020-04-01] MEDS: GUAIFENESIN 300 MG/15 ML UDC PO PRN (13:46)
[2020-04-01] MEDS: ONDANSETRON HCL/PF 4 MG/2 ML VIAL IV PRN ×2 (16:10→23:01)
[2020-04-01] MEDS: PANTOPRAZOLE 40 MG VIAL IV SCH (17:20)
--- NOTE | 2020-04-01 17:26 | NUR ---
MS RN NOTES SEEN AND EVLAUATED BY MD/SK. PER SK NO NEED FOR OB CONSULT WITH DR. NGUYEN. MD/SK MESSAGED DR. NGUYEN PERSONALLY AND STATED NO NEED TO SEE PT AT THIS TIME. PT NEEDS OUTPATENT OB FOLLOW UP AFTER N/V HAS CEASED. PROTONIX ORDERED WELL. WILL CONTINUE TO MONITOR.
[2020-04-01 18:05] VITALS: BP 129/79
--- NOTE | 2020-04-01 18:39 | NUR ---
MS RN NOTES PT REMAINS AWAKE, A/OX4. PT TOLERATING RA, WITH NO ACUTE RESPIRATORY DISTRESS. PT APPEARS CALM AND RESTED. PT DENIES ANY PAIN OR DISCOMFORT AT THIS TIME. IVF NS AT 90ML/HR TO RIGHT HAND G22, INTACT AND FLUID INFUSING WELL. PT KEPT COMFORTABLE IN BED. ALL NEEDS AND CARE ATTENDED. CALL LIGHT KEPT WITHIN REACH. PT'S BED IN LOWEST, LOCKED POSITION WITH SRX3. WILL ENDORSE TO INCOMING NIGHT NURSE FOR JONES.
--- NOTE | 2020-04-01 19:00 | NUR ---
rn ms opening notes received patient in bed awake alert and oriented x4 ,verbally responsive, respirations even and unlabored with equal rise and fall of chest, appears comfortable at this time. no facial grimacing present, no moans present.currently npo except for meds, patient aware, iv site to right hand #22 g intact and patent, no redness, no infiltration present, ivf running as ordered, oriented to staff and call light and kept within reach, safety precautions in place, low bed and locked, all needs attended at this time, no complaints of nausea or vomiting at this time, will continue to monitor.
[2020-04-01 20:00] VITALS: BP 115/62
[2020-04-01 20:12] VITALS: BP 115/62
--- NOTE | 2020-04-01 21:49 | NUR ---
rn ms notes patient noted with nausea and spitting, c/o nausea, offered reglan patient agreed, prn given as ordered, will continue to monitor for effectiveness.
--- NOTE | 2020-04-01 22:00 | NUR ---
rn ms notes patient complained of pain states "to stomach 10/10" noted irritable. requested for tylenol. tylenol prn given as ordered, lights dimmed, will continue to monitor for effectiveness.
--- NOTE | 2020-04-01 23:02 | NUR ---
rn ms notes patient spitting into emesis bag and vomited x1, clear, states" nausea" requested for "zofran" zofran prn given as ordered, will continue to monitor for effectiveness
[2020-04-02] MEDS: ACETAMINOPHEN 325 MG TABLET PO PRN ×2 (04:02→08:18)
--- NOTE | 2020-04-02 04:02 | NUR ---
rn ms notes tylenol prn given.
--- NOTE | 2020-04-02 04:02 | NUR ---
rn ms notes patient complained of pain to abdomen area 10/10 requested for tylenol.
--- NOTE | 2020-04-02 04:10 | NUR ---
rn ms notes patient insisted in calling MD states " call doctor tell them how bad i am i want for something for pain, i just want to sleep, i cant sleep i havent slept in days , i have pain , tylenol isnt working, i consent". Dr. jones paged awaiting call back.
--- NOTE | 2020-04-02 04:12 | NUR ---
rn ms notes noted patient pacing in room undressed,irritable, states pain 10/10 in abdomen area, states has not been able to sleep. requesting for pain medication states "reglan, zofran and tylenol aint helping, can i just have something to rest". called and spoke to dr. jones made aware of findings and patient is new order received morphine one time dose 2mg iv. order read back and carried out.
--- NOTE | 2020-04-02 04:15 | NUR ---
rn ms notes noted patient pacing in room,undressed. irritable, grunting, states she "has pain 06/10 and the reglan , zofran and tylenol aint working can i have something one time" called and spoke to dr.oleg hinds to findings and made aware patient is . new order read back received and carried out for a one time dose of morphine 2mg via iv . Addendum: 04/02/20 at 0434 by FER VILLAGOMEZ RN disregard duplicate note
--- NOTE | 2020-04-02 04:27 | NUR ---
rn ms notes vs wnl 140/63, 70, 18,
[2020-04-02] MEDS ORDERED: MORPHINE SULFATE INJ 2 MG/ML DISP.SYRIN IV ONE (04:30)
--- NOTE | 2020-04-02 05:27 | NUR ---
rn ms notes photo lab technician in unit asked patient if okay to draw blood at this time for lab work pt refused at this time states " come back later ", photo lab technician made aware.
--- NOTE | 2020-04-02 06:15 | NUR ---
rn ms closing notes patient in room awake alert and oriented x4 ,verbally responsive, respirations even and unlabored with equal rise and fall of chest, appears comfortable at this time, morphine was effective . no facial grimacing present, no moans present.currently npo except for meds, patient aware, iv site to right hand #22 g intact and patent, no redness, no infiltration present, at this time patient request iv to be of wants to walk around in room. call light kept within reach, safety precautions in place, low bed and locked, all needs attended at this time, no complaints of nausea or vomiting at this time, will continue to monitor and attend to needs and endorse to next shift.
[2020-04-02] MEDS: ONDANSETRON HCL/PF 4 MG/2 ML VIAL IV PRN ×2 (07:26→19:59)
--- NOTE | 2020-04-02 07:26 | NUR ---
rn ms notes patient complained of nausea requested for zofran zofran prn given as ordered,will endorse to next shift.
--- NOTE | 2020-04-02 07:30 | NUR ---
RN Opening note Received patient in bed, restlessness, necked, moaning and c/o nauseate, given Zofran as prn ordered. Respiratory unlabored in room air, no distress observed, Skin is warm to touch, kept clean/dry, intact IV site running IVF NS at 90 ml/hr. Keep bed in locked for safety, will continue to monitor for safety.
[2020-04-02 08:00] VITALS: BP 112/55
[2020-04-02] MEDS: PANTOPRAZOLE 40 MG VIAL IV SCH (08:17)
--- NOTE | 2020-04-02 09:00 | NUR ---
Patient refused blood draw for lab.
[2020-04-02] MEDS: HYDROCODONE/APAP 5/325MG TABLET PO PRN ×3 (10:05→20:14)
[2020-04-02 10:19] VITALS: BP 112/55
[2020-04-02] MEDS: METOCLOPRAMIDE HCL 10 MG/2 ML VIAL IV PRN ×2 (13:08→23:34)
--- NOTE | 2020-04-02 13:25 | NUR ---
Patient keeps on restlessness and continue to asking pain medication for sore throat, explained pt that only available Tylenol or Robitussin for now, but pt refused Robitussin and wants Lozenges, received order by DR. Toro.
[2020-04-02 13:37] LABS: ALBUMIN 3.3 g/dL (3.4-5.0); BASOPHILS # (AUTO) 0.1 /CMM (0.0-0.2); BASOPHILS % (AUTO) 0.2 % (0.0-2.0); BILIRUBIN,TOTAL 0.7 mg/dL (0.2-1.0); CALCIUM, SERUM 8.1 mg/dL (8.5-10.1); CREATININE 0.9 mg/dL (0.6-1.3); HEMATOCRIT 37 % (33-45); HEMOGLOBIN 11.9 g/dL (11.5-14.8); LYMPHOCYTES # (AUTO) 0.9 /CMM (0.8-4.8); LYMPHOCYTES % (AUTO) 3.1 % (20.0-44.0); MAGNESIUM 1.7 mg/dL (1.8-2.4); MEAN CORPUSCULAR HGB CONC 32 g/dl (31.0-36.0); MEAN CORPUSCULAR VOLUME 88 fL (82-100); MONOCYTES # (AUTO) 0.8 /CMM (0.1-1.30); MONOCYTES % (AUTO) 2.8 % (2.0-12.0); NEUTROPHILS # (AUTO) 28.1 /CMM (1.8-8.9); NEUTROPHILS % (AUTO) 93.9 % (43.0-81.0); PHOSPHORUS 2.6 mg/dL (2.5-4.9); PLATELET COUNT (AUTO) 133 /CMM (150-450); RED BLOOD CELL COUNT(AUTO) 4.24 MIL/uL (4.0-5.2); TOTAL PROTEIN, SERUM 6.2 g/dL (6.4-8.2); WHITE BLOOD COUNT (AUTO) 29.9 K/uL (4.3-11.0)
[2020-04-02 16:00] VITALS: BP 116/75
[2020-04-02] MEDS: MENTHOL/CETYLPYRD (CEPACOL) 1 LOZ LOZENGE PO PRN (17:50)
--- NOTE | 2020-04-02 17:53 | NUR ---
RN Closing note Patient in bed, NPO status, no further c/o n/v but c/o coughing, pt keeps necked in room, does not want to gown on, asking pain medication but does not want to po medicine. Skin is warm to touch, kept clean/dry, intact IV site running NS at 90ml/hr. Respiratory even and unlabored with oxygen at 5LPM via N/C, no distress observed. Collected urine sample for Lab and called lab sample is ready. Keep bed in locked with elevated HOB for ensure airway and aspiration precaution. Call light within reach, will endorse night nurse.
--- NOTE | 2020-04-02 19:30 | NUR ---
MS RN OPENING NOTES RECEIVED PATIENT FROM MORNING SHIFT, ALERT AND ORIENTED X 4. VERBALLY RESPONSIVE AND ABLE TO FOLLOW DIRECTIONS. BREATHING REGULAR AND UNLABORED ON ROOM AIR. RIGHT HAND G22 IV LINE INTACT AND PATENT, INFUSING WELL WITH NO BLEEDING OR S/S OF INFILTRATION NOTED. COMPLAINED OF 7/10 ABDOMINAL PAIN, NON-PHARMACOLOGICAL INTERVENTIONS PROVIDED. BED LOW AND LOCKED ON SEMI FOWLERS POSITION. CALL LIGHT IN REACH. WILL CONTINUE TO MONITOR.
[2020-04-02 20:00] VITALS: BP 110/74
--- NOTE | 2020-04-02 20:10 | NUR ---
MS RN NOTES COMPLAINED OF 10/10 ABDOMINAL PAIN, REFUSED PRN NORCO AND WANTS STRONGER PAIN MED. PER PATIENT SHE WANTS "THE ONES THAT GO THROUGH TH IV". EXPLAINED TO HER THAT STRONGER PAIN MEDS MIGHT AFFECT HER BABY AND WE SHOULD BE EXTRA CAUTIOUS BECAUSE SHE'S . NOTIFIED WITH NO NEW ORDERS. NON-PHARMACOLOGICAL INTERVENTIONS PROVIDED. WILL CONTINUE TO MONITOR.
--- NOTE | 2020-04-02 20:15 | NUR ---
MS RN NOTES STILL COMPLAINING OF 10/10 ABDOMINAL PAIN, TOOK NORCO 5/325 THIS TIME. VITAL SIGNS WNL. WILL CONTINUE TO MONITOR.
[2020-04-02 20:17] VITALS: BP 110/74
[2020-04-02] MEDS: IV NS 0.9% 1,000 ML IV PRN (20:18)
[2020-04-03] MEDS: GUAIFENESIN 300 MG/15 ML UDC PO PRN (02:28)
[2020-04-03] MEDS: ONDANSETRON HCL/PF 4 MG/2 ML VIAL IV PRN ×2 (02:28→09:20)
[2020-04-03] MEDS: ACETAMINOPHEN 325 MG TABLET PO PRN (02:37)
[2020-04-03] MEDS ORDERED: MENTHOL/CETYLPYRD (CEPACOL) 1 LOZ LOZENGE ONE (02:45)
[2020-04-03] MEDS: MENTHOL/CETYLPYRD (CEPACOL) 1 LOZ LOZENGE PO PRN ×2 (02:48→15:23)
[2020-04-03] MEDS: HYDROCODONE/APAP 5/325MG TABLET PO PRN (05:40)
--- NOTE | 2020-04-03 05:50 | NUR ---
MS RN NOTES REFUSED BLOOD DRAW FOR LAB, REQUESTED IT TO BE DONE LATER.
--- NOTE | 2020-04-03 06:40 | NUR ---
MS RN CLOSING NOTES PATIENT IN BED, ALERT AND ORIENTED X 4. AFEBRILE WITH NO S/S OF DISTRESS OBSERVED. RIGHT HAND G22 IV LINE PATENT AND INFUSING WELL. NO COMPLAINTS OF PAIN/DISCOMFORT REPORTED AT THIS TIME. NO NAUSEA/VOMITING NOTED. BED LOW AND LOCKED ON SEMI FOWLERS POSITION. CALL LIGHT IN REACH. WILL ENDORSE TO MORNING SHIFT FOR JONES.
[2020-04-03 08:00] VITALS: BP 119/71
--- NOTE | 2020-04-03 08:00 | NUR ---
MS RN OPENING NOTES Received Patient resting in bed. A/O x 4. VS stable with no acute distress. Breathing even and unlabored on 2LPM via NC with no respiratory distress. Patient stated discomfort. Will intervene as ordered and continue to monitor. 22g PIV on right hand clean, intact, patent and flushing well with NS infusing at 90ml/hr. Safety precautions in place. Bed locked and set to lowest position with side rails x 2 up. All needs rendered at this time. Call light within reach. Will continue to monitor.
[2020-04-03] MEDS: PANTOPRAZOLE 40 MG VIAL IV SCH (08:27)
[2020-04-03] MEDS: IV NS 0.9% 1,000 ML IV PRN (12:43)
[2020-04-03] MEDS: METOCLOPRAMIDE HCL 10 MG/2 ML VIAL IV PRN (12:50)
[2020-04-03 16:00] VITALS: BP 129/72
[2020-04-03] MEDS ORDERED: MORPHINE SULFATE INJ 4 MG/ML DISP.SYRIN IV ONE (16:30)
[2020-04-03] MEDS ORDERED: PROCHLORPERAZINE EDISYLATE 10 MG/2 ML VIAL IM PRN (16:30)
[2020-04-03 16:49] LABS: APPEARANCE,URINE CLEAR (CLEAR); BILIRUBIN,URINE SMALL (NEGATIVE); BLOOD, URINE SMALL Ery/uL (NEGATIVE); COLOR,URINE YELLOW (YELLOW); KETONES,URINE >=80 (NEGATIVE); LEUKOCYTE ESTERASE ,URINE NEGATIVE (NEGATIVE); NITRITE, URINE NEGATIVE (NEGATIVE); PH,URINE 5.5 (5.0-8.0); PROTEIN,URINE 30 mg/dl (NEGATIVE); UGLUCOSE NEGATIVE (NEGATIVE); UROBILINOGEN,URINE 0.2 EU/dL (0.2)
[2020-04-03 17:06] LABS: BASOPHILS % (AUTO) 0.1 % (0.0-2.0); HEMATOCRIT 38 % (33-45); HEMOGLOBIN 12.1 g/dL (11.5-14.8); LYMPHOCYTES # (AUTO) 0.6 /CMM (0.8-4.8); LYMPHOCYTES % (AUTO) 1.9 % (20.0-44.0); MEAN CORPUSCULAR HGB CONC 32 g/dl (31.0-36.0); MEAN CORPUSCULAR VOLUME 87 fL (82-100); MONOCYTES # (AUTO) 0.9 /CMM (0.1-1.30); MONOCYTES % (AUTO) 2.6 % (2.0-12.0); NEUTROPHILS # (AUTO) 31.2 /CMM (1.8-8.9); NEUTROPHILS % (AUTO) 95.4 % (43.0-81.0); PLATELET COUNT (AUTO) 140 /CMM (150-450); RED BLOOD CELL COUNT(AUTO) 4.32 MIL/uL (4.0-5.2)
[2020-04-03 17:13] LABS: WHITE BLOOD COUNT (AUTO) 32.7 K/uL (4.3-11.0)
[2020-04-03 17:21] LABS: BACTERIA,URINE 2+ /HPF (None Seen); MUCUS,URINE Few /LPF (None Seen)
[2020-04-03] MEDS: Potassium Chloride 20 MEQ in IV D5 LR 1,000 ML IV PRN (17:23)
[2020-04-03 17:25] LABS: CALCIUM, SERUM 8.3 mg/dL (8.5-10.1); CREATININE 0.9 mg/dL (0.6-1.3); MAGNESIUM 1.9 mg/dL (1.8-2.4); PHOSPHORUS 2.2 mg/dL (2.5-4.9); POTASSIUM 3.7 mmol/L (3.5-5.1)
[2020-04-03] MEDS: AMPICILLIN 1 GM in IV NS 0.9% 50 ML IV SCH ×2 (17:37→23:06)
--- NOTE | 2020-04-03 18:46 | NUR ---
MS RN CLOSING NOTES Patient resting in bed. A/O x 4. VS stable with no acute distress. Breathing even and unlabored on room air with no respiratory distress. Patient stated abdominal pain 10/10. Administered one time dose Morphine 4mg IVP at 1805. Will endorse to oncoming shift. 22g PIV on right hand clean, intact, patent and flushing well with D5LR 20mEq K+ infusing at 125ml/hr. Safety precautions in place. Bed locked and set to lowest position with side rails x 2 up. All needs rendered at this time. Call light within reach. Will endorse plan of care to oncoming shift.
[2020-04-03 19:14] LABS: BAND % (MANUAL) 1 % (0.0-5.0); LYMPHOCYTES % (MANUAL) 7 % (16-48); MONOCYTES % (MANUAL) 2 % (0-11.0); NEUTROPHILS % (MANUAL) 90 (42-76)
--- NOTE | 2020-04-03 19:35 | NUR ---
MS RN OPENING NOTES RECEIVED PATIENT FROM MORNING SHIFT, ASLEEP BUT EASILY AROUSABLE. VERBALLY RESPONSIVE AND ABLE TO FOLLOW DIRECTIONS. BREATHING REGULAR AND UNLABORED ON OXYGEN AT 2L/MIN VIA NASAL CANNULA. RIGHT HAND G22 IV LINE INTACT AND PATENT, INFUSING WELL WITH NO BLEEDING OR S/S OF INFILTRATION NOTED. NO COMPLAINTS OF PAIN/DISCOMFORT OR NAUSEA/VOMITING AT THIS TIME. DENIES SUICIDAL IDEATION. BED LOW AND LOCKED ON SEMI FOWLERS POSITION. CALL LIGHT IN REACH. WILL CONTINUE TO MONITOR.
[2020-04-03 20:00] VITALS: BP 109/77
[2020-04-04] VITALS (12 sets, daily range): BP systolic 0–166; BP diastolic 0–116
[2020-04-04] MEDS: Potassium Chloride 20 MEQ in IV D5 LR 1,000 ML IV PRN ×2 (00:41→09:43)
[2020-04-04] MEDS: MENTHOL/CETYLPYRD (CEPACOL) 1 LOZ LOZENGE PO PRN (01:09)
[2020-04-04] MEDS: ONDANSETRON HCL/PF 4 MG/2 ML VIAL IV PRN (01:13)
--- NOTE | 2020-04-04 01:15 | NUR ---
MS RN NOTES COMPLAINED OF NAUSEA AND ASKED FOR MEDICATION FOR COUGH. ZOFRAN 4MG IV PUSH AND CEPACOL LOZENGES GIVEN REQUESTED. NON-PHARMACOLOGICAL INTERVENTIONS PROVIDED. ON ASPIRATION PRECAUTIONS. WILL CONTINUE TO MONITOR.
[2020-04-04] MEDS: AMPICILLIN 1 GM in IV NS 0.9% 50 ML IV SCH (05:16)
--- NOTE | 2020-04-04 06:50 | NUR ---
MS RN NOTES REFUSED BLOOD DRAW FOR AM LABS. RISK AND BENEFITS EXPLAINED. PER PATIENT "JUST COME BACK LATER".
--- NOTE | 2020-04-04 08:00 | NUR ---
MS RN OPENING NOTES Received Patient resting in bed. A/O x 4. VS stable with no acute distress. Breathing even and shallow on room air. Refused O2 NC at this time. Explained benefits Patient still refusing. Denies pain. No signs and symptoms of pain. 22g PIV on right hand clean, intact, patent and flushing well with D5LR with 20mEq K+ infusing at 125ml/hr. Safety precautions in place. Bed locked and set to lowest position with side rails x 2 up. All needs rendered at this time. Call light within reach. Will continue to monitor.
--- NOTE | 2020-04-04 08:30 | NUR ---
MS RN NOTES Notified Kal that SPO2 40% on 2LPM via NC. Patient in respiratory distress. Per MD, placed order for STAT ABGs and STAT COVID ANTIGEN test. Orders noted and carried out.
[2020-04-04] MEDS: PANTOPRAZOLE 40 MG VIAL IV SCH (08:43)
[2020-04-04 09:36] LABS: ABG BASE EXCESS -5.8 mmol/L; ABG OXYGEN SATURATION 31.1 % (92.0-98.5); ABG PCO2 26.5 mmHg (35.0-45.0); ABG PH 7.426 (7.350-7.450); ABG PO2 19.4 mmHg (75.0-100.0); AaDO2 199.3 mmHg; COHb 0.6 % (0.5-1.5); MetHb 0.7 % (0.0-1.5); O2Hb 30.7 % (94.0-97.0); SITE, ABG Left Brachial; VENT MODE, BG 4L NC
--- NOTE | 2020-04-04 09:40 | NUR ---
MS RN NOTES Placed Patient on 15LPM via Non-Rebreather. SPO2 48%. Per RT, Cely GALLO order for transfer to ICU.
--- NOTE | 2020-04-04 10:00 | NUR ---
MS RN NOTES Notified Nursing Sup for ICU bed. Notified Kal of Patient transfer.
--- NOTE | 2020-04-04 10:19 | NUR ---
MS RN NOTES Per Utility Manager room 253 available for Patient transfer.
--- NOTE | 2020-04-04 10:25 | NUR ---
MS RN NOTES Called ICU to notify Patient will be transferred. Per community program assistant, there is no nurse available to receive Patient. Receiving nurse in [place].
--- NOTE | 2020-04-04 10:30 | NUR ---
MS RN NOTES Patient non-compliant, removed non-rebreather. Patient in respiratory distress. Rapid Response called.
[2020-04-04 10:51] LABS: BASOPHILS % (AUTO) 0.1 % (0.0-2.0); HEMATOCRIT 40 % (33-45); HEMOGLOBIN 12.4 g/dL (11.5-14.8); LYMPHOCYTES # (AUTO) 0.7 /CMM (0.8-4.8); LYMPHOCYTES % (AUTO) 2.6 % (20.0-44.0); MEAN CORPUSCULAR HGB CONC 31 g/dl (31.0-36.0); MEAN CORPUSCULAR VOLUME 90 fL (82-100); MONOCYTES # (AUTO) 0.9 /CMM (0.1-1.30); MONOCYTES % (AUTO) 3.1 % (2.0-12.0); NEUTROPHILS # (AUTO) 25.7 /CMM (1.8-8.9); NEUTROPHILS % (AUTO) 94.2 % (43.0-81.0); PLATELET COUNT (AUTO) 105 /CMM (150-450); RED BLOOD CELL COUNT(AUTO) 4.47 MIL/uL (4.0-5.2); WHITE BLOOD COUNT (AUTO) 27.3 K/uL (4.3-11.0)
[2020-04-04] MEDS ORDERED: LORAZEPAM INJ 2 MG/ML VIAL IV PRN (11:00)
[2020-04-04] MEDS ORDERED: FUROSEMIDE 40 MG/4 ML VIAL IV ONE (11:00)
--- NOTE | 2020-04-04 11:00 | NUR ---
MS RN NOTES Patient intubated at 1046. Transferred to ICU at this time. All belongings with Patient. Report given to Theo BRO.
[2020-04-04 11:11] LABS: CREATININE 1.1 mg/dL (0.6-1.3); MAGNESIUM 2.3 mg/dL (1.8-2.4); PHOSPHORUS 1.7 mg/dL (2.5-4.9); POTASSIUM 3.6 mmol/L (3.5-5.1)
[2020-04-04] MEDS ORDERED: VECURONIUM 50 MG in IV NS 0.9% 50 ML IV PRN (11:30)
[2020-04-04] MEDS ORDERED: FUROSEMIDE 100 MG/10 ML VIAL IV ONE (11:30)
[2020-04-04] MEDS ORDERED: PHENYLEPHRINE 50 MG in IV NS 0.9% 245 ML IV PRN (11:30)
[2020-04-04] MEDS ORDERED: BUMETANIDE INJ 6 MG in IV NS 0.9% 36 ML IV ONE (12:00)
--- NOTE | 2020-04-04 12:10 | NUR ---
RN NOTES RECEIVE. HAND OFF REPORT FROM HERNANDEZ BRO. PT IS ON MECH VENT VIA ETT
[2020-04-04] MEDS ORDERED: IOHEXOL-350 100 ML VIAL IV ONE (12:11)
--- NOTE | 2020-04-04 12:25 | NUR ---
ICU/RN PT IS INTUBATED ON THE VENT AC MODE,FIO2-100%.HR-160 BPM .ON LEVOPHED DRIP AND SEDATED WITH DIPRIVAN.F/C INSERTED.RIGHT NG TUBE INSERTED. RIGHT FEMORAL TLC PLACED BY .
--- NOTE | 2020-04-04 12:30 | NUR ---
ICU/RN ASYSTOLE ON MONITOR.CODE SHEILA INITIATED .MD AT BEDSIDE.SEE KEITH SOSA RECORD.
[2020-04-04] MEDS ORDERED: SODIUM BICARBONATE SYR 50 MEQ/50 ML DISP.SYRIN ONE (12:36)
--- NOTE | 2020-04-04 13:10 | NUR ---
ICU/RN PT HAS ASYSTOLE ON MONITOR ,NO HEART TONES ,NO RESPIRATIONS,NO BLOOD PRESSURE.PRONOUNCED BY AMISH CHURCH DNP AT 1310.MD NOTIFIED.FAMILY NOTIFIED.
[2020-04-04] MEDS ORDERED: SODIUM BICARBONATE SYR 50 MEQ/50 ML DISP.SYRIN IV ONE (13:19)
[2020-04-04] MEDS ORDERED: EPINEPHRINE (1:10,000) SYRINGE 1 MG/10 ML DISP.SYRIN IVP ONE (13:19)
[2020-04-04] MEDS ORDERED: ALTEPLASE 100 MG/VIAL VIAL IV ONE (13:19)
[2020-04-04] MEDS ORDERED: FEE EMEERGENCY 1 MIN EA MC ONE (13:19)
--- NOTE | 2020-04-04 14:00 | NUR ---
ICU/RN INTELLECTUAL PROPERTY PARALEGAL'S CASE # IS [id number].COPY OF THE CHART DONE . [facility] NOTIFIED, CASE# [id number].FAMILY CAME TO SEE THE BODY AND TAKE PERSONAL BELONGINGS HOME.ALL TUBES AND CATHETERS IN PLACE.BODY TRANSFERRED TO [facility] .
--- NOTE | 2020-04-04 14:38 | NUR ---
RN NOTES PRIOR TO TRANSFER TO CT SCAN, WAS UNABLE TO MEASURE BP AND EXPERIENCE A DROP IN HR. CODE BLUE WAS INITIATED, ACLS WAS PROVIDED FOR 45+ MIN WITH NO SUCCESS. PT FAMILY MADE AWARE, PATROL OFFICER OFFICE MADE AWARE, [facility] CALLED. Addendum: 04/04/20 at 1641 by BENJAMÍN ROY RN TIME OF 1310 04/04/2020, ANNOUNCED BY AMISH CHURCH DNP
--- NOTE | 2020-04-04 15:30 | NUR ---
RN NOTES VITAL SIGNS DOCUMENTED AFTER THE INITIATION OF CPR (12:25 pm) ARE SLASH TRIMMER OF CHEST COMPRESSIONS AND BAGGING OF THE PATIENT DURING ACLS.
[2020-04-04] MEDS ORDERED: SUCCINYLCHOLINE CHLORIDE 20 MG/ML VIAL IV ONE (17:02)
[2020-04-04] MEDS ORDERED: VECURONIUM 10 MG VIAL IV ONE (17:03)
== END 2020-04-04 13:10 | disposition expired | DRG 560 ==
LOC: ER 00:21 → MEDSG2 08:42 → ICU 04-04 11:11
PROVIDERS: ADMIT Student in an Organized Health Care Education/Training Program; ATTEND Internal Medicine
DX: O88.811 Other embolism in pregnancy, first trimester (principal); O99.281 Endocrine, nutritional and metabolic diseases complicating pregnancy, first trimester; O99.511 Diseases of the respiratory system complicating pregnancy, first trimester; O21.1 Hyperemesis gravidarum with metabolic disturbance; Z3A.01 Less than 8 weeks gestation of pregnancy; D72.829 Elevated white blood cell count, unspecified; Z87.01 Personal history of pneumonia (recurrent); J96.01 Acute respiratory failure with hypoxia; J69.0 Pneumonitis due to inhalation of food and vomit; Z37.9 Outcome of delivery, unspecified; I42.9 Cardiomyopathy, unspecified; I27.21 Secondary pulmonary arterial hypertension; I26.92 Saddle embolus of pulmonary artery without acute cor pulmonale; K76.0 Fatty (change of) liver, not elsewhere classified; O26.611 Liver and biliary tract disorders in pregnancy, first trimester; O99.411 Diseases of the circulatory system complicating pregnancy, first trimester
CPT/HCPCS: 36415; 36600; 71045-TC; 76705-TC; 76770-TC; 76805-TC; 80048-TC; 80053-TC; 80076-TC; 80305; 81000-TC; 82803-TC; 83690-TC; 83735-TC; 84100-TC; 84702-TC; 84703-TC; 85025-TC; 87040-TC; 87081-TC; 87086-TC; 92950-TC; 93307-TC; A4217; C1751; C9113; G0378; J0171; J0290; J0330; J0780; J1940; J2270; J2405; J2765; J2997; J3480; J3490; J7030; Q0162; Q9967